=== PATIENT | female | born 1990 | race Caucasian/White ===

== ENCOUNTER → 2020-07-22 17:54 | Outpatient (CLI) | payer OTHER, SELFPAY | PROVIDERS: PCP Family Medicine | DX: Z20.828 Contact with and (suspected) exposure to other viral communicable diseases (principal) | CPT/HCPCS: 87635; 94799; U0003 ==

== ENCOUNTER → 2021-01-09 16:23 | Outpatient (CLI) | payer OTHER, SELFPAY | PROVIDERS: PCP Family Medicine; Referring Provider Otolaryngology; Visit Provider Otolaryngology | DX: J02.9 Acute pharyngitis, unspecified (principal) | CPT/HCPCS: 87070 ==

== ENCOUNTER → 2021-02-10 15:41 | Outpatient (CLI) | payer OTHER, SELFPAY | PROVIDERS: PCP Family Medicine; Visit Provider Otolaryngology | DX: Z11.59 Encounter for screening for other viral diseases (principal) | CPT/HCPCS: 87635; C9803; U0002 ==

== ENCOUNTER → 2021-02-15 15:03 | Outpatient (CLI) | payer OTHER, SELFPAY ==
[2017-01-22 10:42] VITALS: BMI 30.6
--- NOTE | 2021-02-14 08:00 | TONS_PTH ---
PATIENT: VIRGILIO ALARCON LOC: [facility] U#:[id number] AGE/SX: 35/F ROOM: RE02/15/[address]: Dr. Srinivas Randall MD : 1990 BED: DIS: SPEC #: [id number] RECD: 02/15/21 14:55 STATUS: ISSA AKERS #: [id number] HEATHER: 02/14/21 08:[address]: Srinivas Randall DEPT: SURGICAL PATHOLOGY RECD BY: Vanessa aWrd ENTERED: 02/16/21 06:42 SP TYPE: TONSILS OTHR DR: Dr. Harpreet Chan MD [facility] Tissues: Tonsil, NOS Procedures: Surgery Specimen Level III HEADER OPERATION: Tonsillectomy PRE-OP DIAGNOSIS: Chronic tonsillitis TISSUE SUBMITTED: Tonsils (right pinned) MICROSCOPIC DIAGNOSIS Right and left tonsils, bilateral tonsillectomies: Benign lymphoid hyperplasia, consistent with chronic tonsillitis. Organisms consistent with actinomyces. AM:fanta 02/17/2021 MICROSCOPIC DESCRIPTION Slides are reviewed. GROSS DESCRIPTION Received is one container labeled with the patient's name and designated tonsils - pin on right are two tonsils that in aggregate weigh 7.3 gm. The right tonsil has a pin on it and measures 3 x 2 x 1.3 cm. The left tonsil measures 3 x 1.5 x 1.2 cm. Both tonsils are similar in appearance. The external surfaces are pink-buckner, smooth, glistening and somewhat lobulated. Focally they are hemorrhagic, granular and bear cautery artifact. Serial cross sections through the tonsils reveal normal tonsillar architecture. Sections are submitted in two cassettes as follows: 1 - right tonsil, 2 - left tonsil. / AM:fanta 02/16/21 TC:5 CPT: 52719 x2
== END ==
PROVIDERS: PCP Family Medicine; Referring Provider Otolaryngology; Visit Provider Otolaryngology
DX: J35.01 Chronic tonsillitis (principal)
CPT/HCPCS: 88304

== ENCOUNTER 2021-02-16 15:01 | Emergency (ER) | payer OTHER, SELFPAY ==
[2021-02-16 15:03] VITALS: BP 127/72; PULSE 102; RESP 18; TEMP 35.7; O2SAT 100; BMI 27.3
--- NOTE | 2021-02-16 16:22 | ED.DCSUM_ITS ---
- ER Visit Summary Date of Service: 02/16/21 Chief Complaint: Nausea status post tonsillectomy History of Present Illness: The patient is a 30 F past medical history. On Saturday he had a tonsillectomy done by Dr. Michael Muller of ENT. Patient been doing well except she has been nauseated but not vomiting. She is also been constipated from the Percocet. She denies any fever or chills. No black stool or hematemesis. Physical Examination: Well-appearing 30-year-old no acute distress. Vital signs stable afebrile. HEENT exam moist mucous memories. Posterior pharynx status post tonsillectomy but no blood or bleeding. No drooling. Neck nontender no lymphadenopathy. Lungs clear to auscultation bilaterally. Heart regular rhythm rate about 100 no murmur. Abdomen soft nondistended normal bowel sounds no peritoneal signs. Patient moving all 4 extremities. Neurovascular intact. No edema. Neurologically awake alert with no focal motor deficits. Test Results: None Emergency Department Course and Treatment: Patient status post tonsillectomy with basically nausea and constipation. She will be treated with IV fluids and IV Zofran. Reassessed. Treatment Plan: Plenty of fluids and rest. Zofran for nausea as needed. Magnesium citrate for the constipation. Follow-up with her ENT. Disposition: dc Impression: Acute nausea and mild dehydration status post tonsillectomy Constipation This note was generated with [employer] dictation software. It may contain incorrect words, spelling, and punctuation that were not noted in review of the chart prior to signing ED Disposition - Plan for ED Patient: Referrals: Harpreet Chan MD [Primary Care Provider] -
--- NOTE | 2021-02-16 16:25 | ED.DEP ---
ED Disposition - Plan for ED Patient: Disposition: Home or Assisted Living Instructions: ED Dehydration (Adult), ED Constipation (Adult) Prescriptions: Ondansetron [Zofran Odt] 4 mg PO Q8H PRN PRN 3 Days #10 tablet PRN Reason: Nausea Prescription Printed Referrals: Harpreet Randall MD [STAFF PHYSICIAN] - 1-2 Days if not improving Additional Instructions: Zofran as needed for nausea which you may swallow it or let it dissolve under your tongue. Plenty of fluids primarily water and Gatorade and 7-Up. Tylenol and/or Motrin for pain Plenty of fruits, vegetables and fiber for the constipation along with magnesium citrate. Return if feeling worse.
[2021-02-16] MEDS: Ondansetron 4 MG/2 ML Vial IV (16:29)
[2021-02-16] MEDS: 0.9% Normal Saline 1,000 ML 1000 ML IV (16:29)
[2021-02-16 17:58] VITALS: BP 128/77; PULSE 95; RESP 16; O2SAT 99
== END 2021-02-16 18:00 | disposition home or self-care (01) ==
LOC: ED 16:41
PROVIDERS: Emergency Provider Emergency Medicine; PCP Family Medicine
DX: R11.0 Nausea (principal); E86.0 Dehydration; K59.00 Constipation, unspecified
CPT/HCPCS: 96374; 99283; J7030; A4216; J2405

== ENCOUNTER 2021-02-17 03:41 | Emergency (ER) | payer OTHER, SELFPAY ==
[2021-02-16 15:03] VITALS: BMI 27.3
[2021-02-17 03:43] VITALS: BP 134/79; PULSE 107; RESP 16; TEMP 36.8; O2SAT 99; BMI 28.0
--- NOTE | 2021-02-17 03:52 | ED.VIS.GEN ---
History of Present Illness Chief Complaint: Other, Pain/Inj Informant: Patient Narrative: 30-year-old female presents status post 3 days from tonsillectomy with concern for hematemesis. States that she woke up approximately 30 minutes ago and had a large episode of bright red blood vomiting. States that it was only once. States that she has not had the urge to vomit since then. States that she does not have any significant pain. Past Medical History - Allergies and Home Meds Allergies/Adverse Reactions: Allergies No Known Allergies Allergy (Verified 02/17/21 03:43) Primary Care Physician: Harpreet Chan MD [Primary Care Provider] - Prior records reviewed: Yes Past Medical History: None Surgical History: tonsillectomy Lives: With Family Smoking Status: Never smoker Alcohol: None Drugs: None Review of Systems General: Denies: Chills, Fever, Sweats Eyes: Denies: Visual changes - bilaterally, Diplopia ENT: Denies: Rhinorrhea, Sore throat Cardiovascular: Denies: Chest pain, Palpitations Respiratory: Denies: Dyspnea, Cough, Dyspnea on exertion Gastrointestinal: Reports: - - Hematemesis. Denies: Abdominal pain, Nausea, Vomiting, Diarrhea, Melena, Hematochezia Genitourinary: Denies: Dysuria, Hematuria, Frequency Musculoskeletal: Denies: Back pain, Extremity Pain Skin: Denies: Rash, Wounds Neurological: Denies: Headache, Weakness, Numbness Physical Exam Vital Signs/Narrative: Vital Signs Temp Pulse Resp BP Pulse Ox 02/17/21 03:43 98.3 F 107 H 16 134/79 H 99 Inital Vital Signs reviewed: Yes General: Well nourished, Well developed, No Acute Distress Head: Normocephalic, Atraumatic Eyes: Perrl, EOMI ENT: Moist mucous membranes, No rhinorrhea, - - Granulation tissue bilaterally with no acute visible bleeding. Neck: Supple, Nontender Cardiovascular: Regular rate, Regular rhythm, No murmurs Respiratory: No distress, CTA bilaterally, Chest nontender Abdomen: Soft, Nontender, Nondistended, Normal bowel sounds Back: Nontender, Normal Inspection Extremities: Nontender, No edema Skin: Normal color, No rash Neurological: Alert, Oriented x3, Cranial nerves II-XII grossly intact, Normal Strength, Normal Sensation Psychological: Normal affect, Normal Mood Diagnostic/Tx/Re-eval - Medical Decision Making Patient appears well and nontoxic. No vomiting throughout her stay for 90 minutes. Visualization of the posterior pharynx shows no evidence of acute bleeding. Patient did take a Zofran which she had with her which did improve her nausea. Patient was able to tolerate p.o. Spoke with ENT on-call Dr. Kemp who was agreeable with her following in the office. Asked to return for new or worsening symptoms. Patient agreeable and stable at time of discharge. New Impression: 1. Hematemesis 2. Status post tonsillectomy ED Disposition - Plan for ED Patient: Disposition: Home or Assisted Living Instructions: Adult Tonsillectomy Referrals: Harpreet Chan MD [Primary Care Provider] - 2 Days Harpreet Randall MD [STAFF PHYSICIAN] - Keep [facility] appointment
[2021-02-17 05:31] VITALS: BP 111/63; PULSE 85; RESP 18; O2SAT 100
== END 2021-02-17 05:31 | disposition home or self-care (01) ==
PROVIDERS: Emergency Provider Emergency Medicine; PCP Family Medicine
DX: K92.0 Hematemesis (principal)
CPT/HCPCS: 99282

== ENCOUNTER → 2021-08-06 09:41 | Outpatient (CLI) | payer OTHER, SELFPAY | PROVIDERS: PCP Family Medicine; Visit Provider Nurse Practitioner Family | DX: R05 Cough (principal) | CPT/HCPCS: 87635; U0005; U0003 ==

== ENCOUNTER 2023-08-06 09:26 | Emergency (ER) | payer BC, SELFPAY ==
[2023-08-06 09:27] VITALS: BP 147/82; PULSE 107; RESP 16; TEMP 36.2; O2SAT 100; BMI 27.8
--- NOTE | 2023-08-06 09:58 | EKG12_ITS ---
Test Reason : PALPITATIONS Blood Pressure : / mmHG Vent. Rate : 093 BPM Atrial Rate : 093 BPM P-R Int : 124 ms QRS Dur : 080 ms QT Int : 360 ms P-R-T Axes : 063 073 023 degrees QTc Int : 447 ms Normal sinus rhythm Nonspecific ST and T wave abnormality Abnormal ECG Confirmed by KAITLYN RUIZ, SANDRA ([id number]), digital editor DIPAK ALSTON ([id number]) on 08/09/2023 11:21:04 AM Referred By: Confirmed By:SANDRA SAHNI MD
[2023-08-06 10:42] LABS: Anion Gap 6 (5-15); BUN 12 mg/dL (7-18); BUN/Creat Ratio 13.5 RATIO (10-20); Calcium,Total 9.3 mg/dL (8.5-10.1); Chloride 108 mmol/L (98-107); Creatinine, Serum 0.89 mg/dL (0.55-1.02); EST Glomerular Filtration Rate 78 mL/min (>60); Est Glom Filt Rate - Afr Amer 94 mL/min (>60); Estimated Creatinine Clearance 75.07 ml/min; Glucose 101 mg/dL (74-106); Potassium 3.8 mmol/L (3.5-5.1); Sodium Level 138 mmol/L (136-145)
--- NOTE | 2023-08-06 12:58 | EDS_ITS ---
HPI History of Present Illness Chief Complaint: Palpitations Detail of Chief Complaint: Feel my heart beating Informant: patient Onset/Context/Timing Onset: Weeks Context: Sudden Onset Timing: Intermittent Quality: Palpitations Location: Mid chest Current Severity: Mild Maximum Severity: Moderate Worsened by: Possibly diet medication which has sympathomimetic characteristics Relieved by: Nothing Associated Symptoms Associated Symptoms: None Narrative Narrative: Patient is a 32-year-old female who presents because of palpitations that she has noted since she was placed on diet pill. Diet pill apparently is amphetamine like and has sympathomimetic quality. Patient denies headache, visual, ocular auditory symptoms. Patient denies shortness of breath or chest pain of any type. Patient denies GI symptoms. Patient denies neurologic symptoms. Prior similar symptoms: No Recent Illness/Hospitalization: No PFSH PFSH Home Medications L.acidoph, paracasei,B. lactis 10 billion cell capsule 1 ea PO DAILY 01/22/17 [History Last Taken 01/21/17] Norgestimate-Ethinyl Estradiol [Sprintec 28 Day Tablet] 1 ea PO DAILY 01/22/17 [History Last Taken 01/21/17] multivitamin (Multiple Vitamins tablet) 1 tab PO DAILY 01/22/17 [History Last Taken 01/21/17] amoxicillin 875 mg-potassium clavulanate 125 mg tablet (Augmentin) 1 tab PO BID #14 tabs 08/06/21 [Rx Last Taken Unknown] Allergy/AdvReac Type Severity Reaction Status Date / Time No Known Allergies Allergy Verified 08/06/23 09:27 Surgical History History of tonsillectomy Social History (Updated 08/06/23 @ 13:[address] Manuel Blanco MD) household members: spouse Smoking Status: Never smoker substance use type: does not use ROS ROS ED Constitutional Constitutional ED: Denies chills, fever(s), subjective or sweats Eyes Eyes: Denies blurry vision, change in vision or diplopia ENT ENT ED: Denies ear pain, rhinorrhea or sore throat Cardiovascular Cardiovascular: Reports palpitations and racing heartbeat; Denies chest pain, orthopnea or paroxysmal nocturnal dyspnea Respiratory/Chest Respiratory/Chest: Reports dyspnea; Denies cough, dyspnea on exertion, orthopnea or paroxysmal nocturnal dyspnea Gastrointestinal Gastrointestinal: Denies abdominal pain, constipation, diarrhea, melena, nausea or vomiting Genitourinary Genitourinary ED: Denies dysuria, hematuria or urinary frequency Neurologic Neurologic: Denies headache(s), paresthesias or weakness Psychiatric Psychiatric: Reports anxiety Endocrine Endocrinology: Denies cold intolerance or heat intolerance Hematologic/Lymphatic Hematologic/Lymphatic: Reports systems reviewed and no addt'l complaints, except as documented EXAM Physical Exam Const Vital Signs: 08/06/23 09:27 Temperature 97.1 F L Temperature Source Temporal Pulse Rate 107 H Respiratory Rate 16 Blood Pressure 147/82 H Blood Pressure Mean 103 Pulse Ox 100 Oxygen Delivery Method Room Air Positive well nourished and well developed; Negative for obese General Appearance ED: well developed and NAD; Negative for cyanotic or diaphoretic Nutritional Appearance: Negative for obese HEENT Reports moist mucous membranes HEENT Narrative: Head is atraumatic and normocephalic. Ears normal. Nares patent. Posterior pharynx is normal. Eyes PERRL and EOMs intact bilaterally General Eye ED: Negative for pale conjunctiva or scleral icterus Neck no lymphadenopathy, supple and no JVD Chest Wall inspection of chest normal and palpation of chest normal Resp normal respiratory effort and clear to auscultation bilaterally Cardio regular rhythm, S1 normal heart sound, S2 normal heart sound and no murmurs Rate: tachycardic GI normal to inspection, nondistended, normoactive bowel sounds, non-tender, non- distended and no masses; Negative for hepatosplenomegaly Back/Spine no CVA tenderness Extremity normal to inspection Extremity Narrative: There is no asymmetry, swelling, discoloration, leg vein distention, palpable cords or tenderness along the distribution of the deep venous system. General Extremety ED: Negative for edema or tenderness General Extremity: Negative for edema Neuro oriented x3, CN's II-XII intact bilaterally and no sensory deficits noted Sensorium / Orientation: alert Motor Exam: strength 5/5 throughout Psych mental status grossly normal Skin no rashes or lesions noted, no wounds and skin turgor normal General Skin Exam: elasticity normal MDM MDM MDM Narrative Medical decision making narrative: Patient most likely is having symptoms due to diet pill. EKG was obtained to rule out cardiac ischemia or any indication of WPW, lead being long [place] syndrome etc. Electrolytes were obtained to assess potassium. Lab Data Attestation: I reviewed the patient's lab results. Lab results narrative: Chloride is slightly elevated and not compared Labs: Laboratory Results - last 24 hr 08/06/23 10:16 Sodium 138 Potassium 3.8 Chloride 108 H Carbon Dioxide 24.0 Anion Gap 6 BUN 12 Creatinine 0.89 Estim Creat Clear Calc 75.07 Est GFR (MDRD) Af Amer 94 Est GFR (MDRD) Non-Af 78 BUN/Creatinine Ratio 13.5 Glucose 101 Calcium 9.3 EKG Initial EKG: Attestation: I personally reviewed and interpreted this EKG as follows: Interpretation: Sinus Rhythm (Rate is 93. EKG reveals a sinus rhythm. OK interval is 124 ms. Cures duration 80 ms. QT duration 360 ms. [place] is normal. The EKG is normal) Treatment and Re-Evaluation :: Patient was informed her work-up is negative. This is most likely due to the diet pill. Recommend talking to her practitioner. Discharge Plan Triage Chief Complaint: Palpitations ED Provider: Manuel Blanco Dx/Rx/DC Orders Clinical Impression: Heart palpitations, Sinus tachycardia, Adverse effects of medication Instructions: ED Palpitations Prescriptions: No Action amoxicillin-pot clavulanate [Augmentin] 875-125 mg tablet 1 tab PO BID Qty: 14 0RF multivitamin [Multiple Vitamins] 1 EACH tablet 1 tab PO DAILY L.acidoph, paracasei,B. lactis 1 EACH capsule 1 ea PO DAILY Norgestimate-Ethinyl Estradiol [Sprintec 28 Day Tablet] 1 EACH tablet 1 ea PO DAILY Primary Care Provider: Harpreet Chan Referrals: Harpreet Chan MD [Primary Care Provider] - As soon as possible Disposition Disposition: Home, Self Care
[2023-08-06 13:26] VITALS: RESP 16
== END 2023-08-06 13:30 | disposition home or self-care (01) ==
PROVIDERS: Emergency Provider Emergency Medicine; PCP Family Medicine; Visit Provider Emergency Medicine
DX: R00.2 Palpitations (principal); R00.0 Tachycardia, unspecified; T44.905A Adverse effect of unspecified drugs primarily affecting the autonomic nervous system, initial encounter; Z79.899 Other long term (current) drug therapy
CPT/HCPCS: 80048; 93005; 99283; A4216